=== PATIENT | female | born 1985 | race Caucasian/White ===

== ENCOUNTER 2018-07-31 10:43 | Emergency (ER) | payer MEDICAID, SELFPAY ==
[2018-07-31 10:45] VITALS: BP 109/68; PULSE 73; RESP 15; TEMP 35.9; O2SAT 99; BMI 21.3
--- NOTE | 2018-07-31 11:03 | ED.DCSUM_ITS ---
- ER Visit Summary Date of Service: 07/31/18 Chief Complaint: Vomiting diarrhea History of Present Illness: The patient is a 32 F who states that beginning last she has had diarrhea. On Sunday she developed vomiting. Her last episode of vomiting was Sunday. She states that she has 2 children at home who is also had vomiting. 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 She went to her primary care physician's office yesterday and was diagnosed with a gastroenteritis as well as a otitis media and given amoxicillin. She states that she is drinking large amounts of water. She has not required any Zofran at home. She has not taken any Imodium. She describes the diarrhea as green liquid. She has city water. Prior to the amoxicillin no other antibiotics recently. No recent travel. She states that she is very lightheaded and dizzy particularly with going up stairs and movement. She also notes migraines which she has medication for. Physical Examination: Afebrile vital signs are stable Gen: Well-nourished well-developed Head: Normocephalic atraumatic Eyes: Perrl EOMI ENT: TMs clear no rhinorrhea moist mucous membranes Neck: Supple no lymphadenopathy no JVD nontender CVS: Regular rate rhythm no murmurs normal S1-S2 Respiratory: No distress clear to auscultation bilaterally chest nontender Abdomen: Soft nontender nondistended normal bowel sounds no masses Back: Nontender Extremity: Nontender no edema Skin: Normal color no rash Neuro: alert orientated ?3 CN II-XII intact normal strength sensation reflexes gait cerebellar Psych: Normal affect normal mood Test Results: White count 4.3. Potassium 3.4. Liver lipase negative. Urinalysis and test negative. Emergency Department Course and Treatment: Patient received 2 L of IV fluids. She also received 40 mEq of p.o. potassium. Her orthostatics are negative. She will be discharged home continue to oral hydration return if worsening or concerns. Impression: 1. Gastroenteritis 2. Dehydration This note was generated with [employer] dictation software. It may contain incorrect words, spelling, and punctuation that were not noted in review of the chart prior to signing ED Disposition - Plan for ED Patient: Disposition: Home or Assisted Living Chief Complaint: Nausea/Vomiting/Diarrhea Instructions: ED Gastroenteritis Viral Referrals: Bull Linton DO [Primary Care Provider] - 3-5 Days
[2018-07-31 11:24] LABS: Absolute Lymphocyte Count 1.47 X10^3/ul (0.83-4.51); Absolute Neutrophil Count 2.4 X10^3/uL (2.0-7.7); Basophil# 0.03 X10^3/uL; Basophil% 0.7 % (0-1); Eosinophil# 0.05 X10^3/uL; Eosinophils% 1.2 % (0-5); Hemoglobin 13.9 g/dl (12.0-15.0); Lymphocyte # 1.47 X10^3/ul (4.0); Lymphocyte % 33.9 % (19-41); Mean Corp Hgb Conc 33.1 g/gl (32-36); Mean Corpuscular Hgb 28.2 pg (27.0-32.0); Mean Corpuscular Volume 85.2 fL (81-99); Mean Platelet Vol. 9.1 fl (6.2-12.0); Monocyte# 0.37 X10^3/uL; Monocyte% 8.5 % (0-10); Neutrophil # 2.42 X10^3/uL (2.7-7.7); Neutrophil % 55.7 % (47-70); Platelet Count 270 K/mm3 (150-450); RBC Distribution Width CV 13.3 % (11.6-14.6); RBC Distribution Width SD 41.2 fl (35.1-43.9); Red Blood Count 4.93 M/mm3 (4.2-5.4); White Blood Count 4.3 K/mm3 (4.4-11.0)
[2018-07-31 11:26] LABS: POSITIVE COUNT NO; POSITIVE DIFFERENTIAL NO; POSITIVE MORPHOLOGY NO
[2018-07-31] MEDS: 0.9% Normal Saline 1,000 ML 999 ML IV ×2 (11:30)
[2018-07-31] MEDS: Ondansetron 4 MG/2 ML Vial IV (11:30)
[2018-07-31 11:43] LABS: AST(SGOT) 18 U/L (15-37); Alanine Aminotransfer ALT/SGPT 23 U/L (13-56); Albumin, Serum 3.9 g/dL (3.2-5.0); Alkaline Phosphatase 68 U/L (45-117); Anion Gap 8 (5-15); BUN 6 mg/dL (7-18); BUN/Creat Ratio 7.3 RATIO (10-20); Bilirubin, Direct 0.09 mg/dL (0.00-0.30); Calcium,Total 8.3 mg/dL (8.5-10.1); Chloride 105 mmol/L (98-107); Creatinine, Serum 0.82 mg/dL (0.55-1.02); EST Glomerular Filtration Rate 86 mL/min (>60); Est Glom Filt Rate - Afr Amer 104 mL/min (>60); Globulin 4.2 g/dL (2.2-4.2); Glucose 84 mg/dL (74-106); Lipase 249 U/L (73-393); Potassium 3.4 mmol/L (3.5-5.1); Protein, Total 8.1 g/dL (6.4-8.2); Sodium Level 140 mmol/L (136-145)
[2018-07-31 12:11] LABS: Bacteria 0 SEEN /hpf (None Seen); Mucous, Urine 0 SEEN /hpf (<or=2+); Red Blood Cells-Urine 0 SEEN /hpf (0-5); White Blood Cells 0 SEEN /hpf (0-5)
[2018-07-31 12:15] LABS: Internal QC Validated? YES +Cl - CLEAR BKGD; Pregnancy, Urine Negative Negative
[2018-07-31 12:34] LABS: Color, Urine Yellow (Yellow); Urine Clarity Sl Cldy (Clear)
[2018-07-31 12:35] LABS: Glucose, Dipstick NEGATIVE (Normal); Leukocyte Esterase-Dipstick Negative /ul (Negative); Nitrite-Dipstick Negative (Negative); Protein-Dipstick 15 mg/dl (Negative)
[2018-07-31 12:36] LABS: Ketone-Dipstick Negative (Negative); Occult Blood-Urine Negative /ul (Negative); Urine Bilirubin Dipstick Negative (Negative); Urine Urobilinogen Normal (Normal)
[2018-07-31 12:46] LABS: Squamous Epithelial Cells - UA 0-5 SEEN /hpf (5-10)
[2018-07-31 12:59] VITALS: BP 104/65; BP 95/69; BP 99/69; PULSE 66; PULSE 75; PULSE 81
[2018-07-31 13:00] VITALS: RESP 17; O2SAT 100
[2018-07-31 14:06] VITALS: PULSE 72; RESP 17; O2SAT 99
== END 2018-07-31 14:09 | disposition home or self-care (01) ==
PROVIDERS: Emergency Provider Emergency Medicine; Family Provider Student in an Organized Health Care Education/Training Program; PCP Student in an Organized Health Care Education/Training Program
DX: K52.9 Noninfective gastroenteritis and colitis, unspecified (principal); E86.0 Dehydration; E87.6 Hypokalemia; H66.90 Otitis media, unspecified, unspecified ear; Z79.2 Long term (current) use of antibiotics
CPT/HCPCS: 80048; 80076; 81001; 81025; 83690; 85025; 96361; 96374; 99284; J7030; A4216; J2405

== ENCOUNTER 2018-11-08 20:22 | Emergency (ER) | payer MEDICAID, SELFPAY ==
[2018-11-08 20:23] VITALS: BP 121/69; PULSE 87; RESP 18; TEMP 36.7; O2SAT 100; BMI 23.0
--- NOTE | 2018-11-08 20:32 | CT_ITS ---
STUDY: CT ABDOMEN AND PELVIS WITHOUT CONTRAST REASON FOR EXAM: Female, 33 years old. Left flank pain. RADIATION DOSAGE (If Supplied By Facility): CTDIvol = ( 6.13 ) mGy, DLP = ( 302.98 ) mGycm TECHNIQUE: Transaxial images were obtained from the dome of the diaphragm to the symphysis pubis without oral contrast, and without intravenous contrast. Sagittal and coronal images were reconstructed. Individualized dose optimization techniques were used for this CT. COMPARISON: . FINDINGS: The visualized lung bases are unremarkable. The visualized portions of the heart are within normal limits. Normal liver. There is non-visualization of the gallbladder, which may be secondary to either contraction or a prior cholecystectomy. Normal spleen. Normal pancreas. Normal bilateral adrenal glands. Normal right kidney. Normal left kidney. No definite renal or ureteral stones are seen. There is no hydronephrosis on either side. Evaluation of the GI tract is limited by absence of oral contrast. Cannot exclude stomach wall thickening. No dilated loops of bowel or evidence for obstruction. Cannot exclude segmental thickening of the nieves of the small or large bowel. Cannot exclude enteritis or colitis. Moderate diffuse fecal retention. There has been appendectomy. Normal abdominal aorta. Normal inferior vena cava. Normal retroperitoneum. Normal urinary bladder. There is absence of the uterus consistent with a prior hysterectomy. Normal abdominal wall. Normal osseous structures. CT/Abdomen/Pelvis without Cont IMPRESSION: No definite abnormality found. Electronically Signed: Scott Weber MD at 22:14 EST , Service support ,
--- NOTE | 2018-11-08 20:35 | ED.VISSUMM ---
- ER Visit Summary Date of Service: 11/08/18 Chief Complaint: Flank pain, abdominal pain History of Present Illness: The patient is a 33 F presents to the emergency department left-sided flank pain and low back pain. The patient states her symptoms began today. She states she had a dull ache in her left low back. Since then, its been more migratory to the front of her abdomen. She states when she takes a deep breath, hurts her abdomen. She denies being short of breath. She denies any fevers or chills. She denies dysuria. She had prior hysterectomy and appendectomy. She is noticed no change in her urine. She did take ibuprofen with little improvement. Physical Examination: Vital signs reviewed General: Well-nourished, well-developed Head: Normocephalic, atraumatic Eyes: Pupils equal and reactive, extraocular muscles intact Neck, supple, no lymphadenopathy Heart: Regular rate and rhythm Respiratory: No distress, clear bilaterally Abdomen: Soft, nontender, nondistended, no peritoneal signs Back: Nontender Extremities: Nontender, no edema, no cords Skin: Normal color no rash Neuro: Alert and oriented, no focal or lateralizing deficits Test Results: [] Emergency Department Course and Treatment: The patient's abdomen is soft and nontender. She really has no reproducible CVA tenderness. There is no rash. IV was established. She was given fluids and Toradol. Screening labs are unremarkable. Urine shows no evidence of infection. Patient underwent plain CT. There is significant stool burden, but no other acute process. My suspicion is that this is likely an exacerbation of her chronic constipation. And treat patient with magnesium citrate, Colace, and Bentyl. I do feel that she is safe for outpatient therapy. She was counseled on concerning symptoms and reasons to return. Treatment Plan: [] Disposition: Discharge Impression: 1. Left flank pain 2. Constipation This note was generated with [employer] dictation software. It may contain incorrect words, spelling, and punctuation that were not noted in review of the chart prior to signing ED Disposition - Plan for ED Patient: Instructions: ED Flank Pain Uncertain Cause Prescriptions: Dicyclomine HCl [Bentyl] 20 mg PO TIDAC #20 cap Docusate Sodium [Colace] 100 mg PO DAILY #20 cap Magnesium Citrate [Citrate Of Magnesia] 300 ml PO X1 #1 bottle Referrals: Bull Linton DO [Primary Care Provider] -
[2018-11-08] MEDS: Ketorolac 30 MG/ML Syringe IV (21:37)
[2018-11-08] MEDS: 0.9% Normal Saline 1,000 ML 250 ML IV (21:37)
[2018-11-08] MEDS: Ondansetron 4 MG/2 ML Vial IV (21:37)
[2018-11-08 21:47] LABS: Bacteria 0 SEEN /hpf (None Seen); Mucous, Urine 0 SEEN /hpf (<or=2+); Red Blood Cells-Urine 0 SEEN /hpf (0-5); Squamous Epithelial Cells - UA 0 SEEN /hpf (5-10); White Blood Cells 0 SEEN /hpf (0-5)
[2018-11-08 21:50] LABS: Absolute Lymphocyte Count 3.15 X10^3/ul (0.83-4.51); Absolute Neutrophil Count 6.1 X10^3/uL (2.0-7.7); Basophil# 0.03 X10^3/uL; Basophil% 0.3 % (0-1); Eosinophil# 0.24 X10^3/uL; Eosinophils% 2.3 % (0-5); Hematocrit 38.9 % (37-47); Hemoglobin 12.6 g/dl (12.0-15.0); Lymphocyte # 3.15 X10^3/ul (4.0); Lymphocyte % 30.3 % (19-41); Mean Corp Hgb Conc 32.4 g/gl (32-36); Mean Corpuscular Hgb 27.6 pg (27.0-32.0); Mean Corpuscular Volume 85.3 fL (81-99); Mean Platelet Vol. 9.1 fl (6.2-12.0); Monocyte# 0.83 X10^3/uL; Neutrophil # 6.12 X10^3/uL (2.7-7.7); Neutrophil % 58.8 % (47-70); Platelet Count 344 K/mm3 (150-450); RBC Distribution Width CV 14.1 % (11.6-14.6); RBC Distribution Width SD 44.2 fl (35.1-43.9); Red Blood Count 4.56 M/mm3 (4.2-5.4); White Blood Count 10.4 K/mm3 (4.4-11.0)
[2018-11-08 21:51] LABS: POSITIVE COUNT NO; POSITIVE DIFFERENTIAL NO; POSITIVE MORPHOLOGY NO
[2018-11-08 21:51] LABS: Color, Urine Yellow (Yellow); Glucose, Dipstick Normal (Normal); Ketone-Dipstick Negative (Negative); Leukocyte Esterase-Dipstick Negative /ul (Negative); Nitrite-Dipstick Negative (Negative); Occult Blood-Urine Negative /ul (Negative); Protein-Dipstick Negative (Negative); Specific Gravity, Urine 1.015 (1.002-1.030); Urine Bilirubin Dipstick Negative (Negative); Urine Clarity Clear (Clear); Urine Urobilinogen Normal (Normal); Urine pH 6.5 (5.0 - 8.0)
[2018-11-08 22:02] LABS: Anion Gap 7 (5-15); BUN 10 mg/dL (7-18); BUN/Creat Ratio 14.3 RATIO (10-20); Calcium,Total 8.5 mg/dL (8.5-10.1); Chloride 106 mmol/L (98-107); EST Glomerular Filtration Rate 103 mL/min (>60); Est Glom Filt Rate - Afr Amer 124 mL/min (>60); Estimated Creatinine Clearance 102.86 ml/min; Glucose 77 mg/dL (74-106); Potassium 3.5 mmol/L (3.5-5.1); Sodium Level 140 mmol/L (136-145)
[2018-11-08 22:43] VITALS: BP 105/71; PULSE 73; RESP 16; O2SAT 100
[2018-11-08] MEDS: Magnesium Citrate 300 ML PO (22:44)
== END 2018-11-08 22:46 | disposition home or self-care (01) ==
LOC: ED 20:46
PROVIDERS: Emergency Provider Emergency Medicine; Family Provider Student in an Organized Health Care Education/Training Program; PCP Student in an Organized Health Care Education/Training Program
DX: K59.00 Constipation, unspecified (principal); R10.9 Unspecified abdominal pain
CPT/HCPCS: 74176; 80048; 81001; 85025; 96361; 96374; 96375; 99284; J7030; J2405

== ENCOUNTER → 2019-03-31 | Outpatient (CLI) | payer MEDICAID, SELFPAY ==
--- NOTE | 2019-03-31 17:17 | RAD_ITS ---
STUDY: X-RAY - RIGHT FOOT CLINICAL: Female, 33 years old. Fall one hour ago. Anterior and lateral foot pain. TECHNIQUE: 3 view(s) of the foot. COMPARISON: None. FINDINGS: Normal talus, calcaneus, and tarsal bones. Normal visualized subtalar, talonavicular, calcaneocuboid, tarsal and tarsometatarsal articulations. Normal metatarsi. Normal metatarsophalangeal joint of the great toe. Normal tibial and fibular sesamoid bones. Normal interphalangeal joint of the great toe. Normal phalanges of the great toe. Normal second through fifth metatarsophalangeal joints. Normal interphalangeal joints and phalanges of the lesser toes. The soft tissue structures are unremarkable. RAD/Foot min 3 Views IMPRESSION: Normal x-ray examination of the foot. Electronically Signed: John Shipman MD at 17:37 EDT , Service support ,
--- NOTE | 2019-03-31 17:17 | RAD_ITS ---
STUDY: X-RAY - RIGHT ANKLE REASON FOR EXAM: Female, 33 years old. Fall one hour. Ankle pain. TECHNIQUE: 3 view(s) of the ankle. COMPARISON: None. FINDINGS: Normal visualized distal tibia and fibula. Normal medial and lateral malleoli. Normal tibiotalar articulation and ankle mortise. Normal visualized talus and calcaneus. The visualized subtalar, talonavicular, calcaneocuboid and tarsal articulations are normal. The soft tissue structures are unremarkable. RAD/Ankle min 3 Views IMPRESSION: Normal x-ray examination of the ankle. Electronically Signed: John Shipman MD at 17:38 EDT , Service support ,
== END | disposition home or self-care (01) ==
PROVIDERS: Family Provider Student in an Organized Health Care Education/Training Program; PCP Student in an Organized Health Care Education/Training Program; Referring Provider Physician Assistant; Visit Provider Physician Assistant
DX: S99.911A Unspecified injury of right ankle, initial encounter (principal); S99.921A Unspecified injury of right foot, initial encounter
CPT/HCPCS: 73610; 73630

== ENCOUNTER 2019-06-23 09:05 | Emergency (ER) | payer MEDICAID, SELFPAY ==
[2019-06-23 09:05] VITALS: BMI 23.0
[2019-06-23 09:07] VITALS: BP 131/79; PULSE 88; RESP 18; TEMP 36.1; O2SAT 100; BMI 23.4
--- NOTE | 2019-06-23 09:18 | CT_ITS ---
STUDY: CT BRAIN WITHOUT CONTRAST REASON FOR EXAM: Female, 33 years old. Right facial tingling. Twitching of the right eye. RADIATION DOSAGE (If Supplied By Facility): CTDIvol = ( 44.99 ) mGy, DLP = ( 745.49 ) mGycm TECHNIQUE: Transaxial CT imaging of the brain was performed without administration of intravenous contrast material. Individualized dose optimization techniques were used for this CT. COMPARISON: No relevant priors. FINDINGS: Normal soft tissue structures. Normal calvarium. Normal size ventricles and extra-axial spaces for the patient's age. Normal white matter tracts of the cerebral hemispheres. The left sylvian fissure is more prominent than the right side. This may be a normal variant. Normal basal ganglia and thalami. Normal brainstem. Normal cerebellum. There is no intracranial hemorrhage. There are no findings of an acute ischemic infarction. Normal visualized paranasal sinuses. CT/Brain/Head without Contrast IMPRESSION: Normal unenhanced CT scan of the brain. Electronically Signed: Yash Mroris, at 9:56 EDT , Service support ,
--- NOTE | 2019-06-23 09:26 | ED.DCSUM_ITS ---
- ER Visit Summary Date of Service: 06/23/19 Chief Complaint: Right facial tingling History of Present Illness: The patient is a 33 F Struve migraines and high cholesterol. Patient states her son was actually in the emergency department earlier today being evaluated. She dropped him off at school and around 745 developed right-sided facial tingling. No headache. She denies any arm or leg weakness or numbness. No visual change. No slurred speech. No recent head trauma. She is on no blood thinners. She is never had anything like this before. No family history of clotting disorders. Physical Examination: Well-appearing young female no acute distress. Vital signs are stable afebrile. H EENT exam unremarkable. No facial droop. Pupils round reactive light. Extra motions are intact. Tongue midline. Normal speech. Neck nontender no bruits. Lungs clear to auscultation bilaterally. Heart regular rhythm no murmur. Abdomen soft and nontender. Patient is moving all 4 extremities. There are neurovascular intact. She has 5 out of 5 psychology tech strength bilaterally. Dorsi plantarflexion intact. Neurologically she is awake and alert. No facial droop or weakness. Subjectively her right forehead and right cheek she said is decreased sensation compared to the left but she can feel me touching her face. Both upper and lower extremities are neurovascular intact with normal psychology tech and sensation normal range of motion. Fingertip to nose and [id number] within normal limits bilaterally. He can get up stand and walk to the wall without any difficulty. No ataxia. Negative Romberg. Her NIH score is 0-1 at most and it would be subjective decreased sensation on the right side of her face. Test Results: CAT scan of the brain without contrast as normal by the radiologist and reviewed by me. Emergency Department Course and Treatment: Normal exam except for decreased sensation to the right side of her face. Repeat exam unchanged repeat neurologic exam unchanged. Normal fingertip to nose normal [id number]. Normal ambulation. Normal speech. No facial droop. Subjective right-sided facial decreased sensation but she is able to feel touch on that side. Treatment Plan: Follow-up with primary care physician. Obviously return if worse or develops any trouble with moving her arms or legs, visual change, trouble with her speech or difficulty walking. Clinically I do not feel at this time she needs any further work-up. Disposition: Discharge Impression: Right-sided facial tingling of uncertain etiology This note was generated with [employer] dictation software. It may contain incorrect words, spelling, and punctuation that were not noted in review of the chart prior to signing ED Disposition - Plan for ED Patient: Referrals: Bull Linton DO [Primary Care Provider] -
--- NOTE | 2019-06-23 10:06 | ED.DEP ---
ED Disposition - Plan for ED Patient: Disposition: Home or Assisted Living Instructions: Paraesthesias Referrals: Bull Linton DO [Primary Care Provider] - 3-5 Days if not improving Additional Instructions: Return if worse such as visual change, trouble using her arms or legs, weakness or speech change. This should progressively improve and go away if not follow-up with your doctor for further evaluation.
--- NOTE | 2019-06-23 10:14 | ED.RN ---
DISCHARGE INSTRUCTIONS GIVEN TO AND REVIEWED WITH PATIENT, PATIENT DENIES QUESTIONS OR CONCERNS AND VOICES UNDERSTANDING OF DISCHARGE INSTRUCTIONS. PT AMBULATES OUT OF ROOM WITHOUT DIFFICULTY.
== END 2019-06-23 10:15 | disposition home or self-care (01) ==
PROVIDERS: Emergency Provider Emergency Medicine; Family Provider Student in an Organized Health Care Education/Training Program; PCP Student in an Organized Health Care Education/Training Program
DX: R20.2 Paresthesia of skin (principal); G43.909 Migraine, unspecified, not intractable, without status migrainosus; Z79.899 Other long term (current) drug therapy
CPT/HCPCS: 70450; 99282

== ENCOUNTER → 2020-06-14 | Outpatient (CLI) | payer MEDICAID, SELFPAY | END | disposition home or self-care (01) | LOC: MTDU 17:18 | PROVIDERS: PCP Student in an Organized Health Care Education/Training Program; Referring Provider Physician Assistant; Visit Provider Physician Assistant | DX: Z20.828 Contact with and (suspected) exposure to other viral communicable diseases (principal) | CPT/HCPCS: 87635; C9803; U0003 ==

== ENCOUNTER 2021-03-12 23:50 | Observation (INO) | payer MEDICAID, SELFPAY ==
[2021-03-12 23:51] VITALS: BP 129/77; PULSE 85; RESP 18; TEMP 36.3; O2SAT 100; BMI 22.4
[2021-03-13] VITALS (14 sets, daily range): BP systolic 103–118; BP diastolic 52–81; PULSE 68–88; RESP 14–22; TEMP 36.6–37.1; O2SAT 94–100; BMI 22.4
--- NOTE | 2021-03-13 00:37 | EKG12_ITS ---
Test Reason : STROKE TEAM Blood Pressure : / mmHG Vent. Rate : 076 BPM Atrial Rate : 076 BPM P-R Int : 158 ms QRS Dur : 080 ms QT Int : 410 ms P-R-T Axes : 057 045 045 degrees QTc Int : 461 ms Normal sinus rhythm Normal ECG Confirmed by ROXANA REED, TEDDY ([id number]), video effects editor ENRIQUE TIJERINA ([id number]) on 03/14/2021 10:47:46 A M Referred By: MAUDE Confirmed By:FLOWER SCHMIDT MD
--- NOTE | 2021-03-13 00:37 | RAD_ITS ---
STUDY: X-RAY CHEST REASON FOR EXAM: Female, 35 years old. Neuro deficit, acute, stroke suspected TECHNIQUE: Single AP portable view of the chest. COMPARISON: None. FINDINGS: The lungs are clear and expanded. There is no demonstrated pleural abnormality. Normal size heart. Normal mediastinum and sangeeta. Normal visualized pulmonary arteries. Normal visualized aortic arch and descending thoracic aorta. Normal visualized thoracic spine. Normal visualized ribs, clavicles, and shoulders. There is no demonstrated abnormality of the visualized soft tissue structures of the upper abdomen. RAD/Chest 1 View IMPRESSION: Normal x-ray examination of the chest. Electronically Signed: Page Mckeon MD at 1:23 EDT , Service support ,
--- NOTE | 2021-03-13 00:37 | CT_ITS ---
We are attempting to reach an attending provider to discuss findings. An addendum with communication details will be sent when the communication is complete. HISTORY: Neuro deficit, acute, stroke suspected EXAMINATION: CT Head Stroke Protocol W/O Contrast Injection TECHNIQUE: Multiple axial images were obtained of the head without intravenous contrast. A radiation dose optimization technique was used for this scan. IV Contrast dosage and agent: None. COMPARISON: Head CT from 06/23/19 FINDINGS: BRAIN PARENCHYMA: No intra- or extra-axial hemorrhage. No evidence of acute infarct. No intracranial mass or mass effect. There is preservation of the beasley/white matter interface. Posterior fossa structures are unremarkable. CSF SPACES: Appropriate for age. No hydrocephalus. Basal cisterns are patent. CALVARIUM, SKULL BASE, PARANASAL SINUSES AND MASTOID AIR CELLS: Intact calvarium. No acute disease within imaged paranasal sinuses. Mastoid air cellls are well pneumatized. ORBITS: Unremarkable as visualized. ASPECTS Score for Acute Strokes: 10 CT/STROKE Brain/Head without Cont IMPRESSION: Negative Brain CT without contrast. Individualized dose optimization techniques were used for this CT. at 0059 Reported and signed by: Ricky Blue MD Electronically Signed: Ricky Blue MD at 0:58 EDT Tel , Service support ,
--- NOTE | 2021-03-13 00:37 | CT_ITS ---
We are attempting to reach an attending provider to discuss findings. An addendum with communication details will be sent when the communication is complete. STUDY: CTA HEAD AND NECK WITH CONTRAST REASON FOR EXAM: Female, 35 years old. Neuro deficit, acute, stroke suspected RADIATION DOSAGE (If Supplied By Facility): CTDIvol = ( 16.32 ) mGy, DLP = ( 575.76 ) mGycm TECHNIQUE: CT angiography was performed with a multi-detector CT scanner. Data acquisition was obtained from the skull base through the vertex following intravenous administration of IV 100mL [id number]-[id number]. MIP images were reconstructed from the axial data set. Post-processing of the angiographic images was performed, with multiplanar reformation and 3D reconstruction. Individualized dose optimization techniques were used for this CT. COMPARISON: No relevant priors. FINDINGS: Normal bilateral petrous carotid arteries. Normal right cavernous carotid artery with a normal supraclinoid bifurcation. Normal left cavernous carotid artery with a normal supraclinoid bifurcation. Normal right A1 segments of the anterior cerebral artery. Normal left A1 segments of the anterior cerebral artery. Normal intact anterior communicating artery (ACOM). Normal bilateral A2 segments of the anterior cerebral arteries. Normal right M1 and M2 segments of the middle cerebral arteries, with a normal M1 bifurcation. Normal left M1 and M2 segments of the middle cerebral arteries, with a normal M1 bifurcation. Normal right posterior communicating artery (PCOM). Normal left posterior communicating artery (PCOM). Normal bilateral vertebral arteries. Normal basilar artery with a normal basilar bifurcation. The visualized bilateral superior cerebellar (SCA) arteries are normal. Normal bilateral P1, P2 and visualized P3 segments of the posterior cerebral arteries. There is no demonstrated aneurysm of the [place]. There is no demonstrated abnormality of the visualized brain. AORTIC ARCH: Normal visualized aortic arch. Normal origins of the brachiocephalic, left common carotid, and left subclavian arteries. RIGHT CAROTID ARTERIES: Normal right common carotid artery (CCA). Normal right common carotid bulb. Normal origin of the right internal carotid (ICA) artery without a hemodynamically significant stenosis. Normal visualized cervical portion of the right internal carotid artery. Normal origin of the right external carotid artery (ECA). LEFT CAROTID ARTERIES: Normal left common carotid artery (CCA). Normal left common carotid bulb. Normal origin of the left internal carotid (ICA) artery without a hemodynamically significant stenosis. Normal visualized cervical portion of the left internal carotid artery. Normal origin of the left external carotid artery (ECA). VERTEBRAL ARTERIES: Normal bilateral vertebral arteries. CT/STROKE CTA Head AND Neck W/Con IMPRESSION: Normal CTA Head and neck with contrast. Electronically Signed: Page Mckeon MD at 1:22 EDT , Service support ,
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
[2021-03-13 00:53] LABS: Absolute Lymphocyte Count 2.76 X10^3/uL (0.83-4.51); Absolute Neutrophil Count 5.6 X10^3/uL (2.0-7.7); Basophil# 0.05 X10^3/uL; Basophil% 0.5 % (0-1); Eosinophils% 2.1 % (0-5); Hematocrit 37.5 % (37-47); Hemoglobin 12.2 g/dL (12.0-15.0); Lymphocyte # 2.76 X10^3/ul (0.83-4.51); Lymphocyte % 29.5 % (19-41); Mean Corp Hgb Conc 32.5 g/dL (32-36); Mean Corpuscular Hgb 28.7 pg (27.0-32.0); Mean Corpuscular Volume 88.2 fL (81-99); Mean Platelet Vol. 9.2 fl (6.2-12.0); Monocyte# 0.78 X10^3/uL; Monocyte% 8.3 % (0-10); NRBC Flagged by Analyzer 0 % (0-5); Neutrophil # 5.55 X10^3/uL (2.7-7.7); Neutrophil % 59.3 % (47-70); Platelet Count 314 K/mm3 (150-450); RBC Distribution Width CV 12.9 % (11.6-14.6); RBC Distribution Width SD 41.7 fl (35.1-43.9); Red Blood Count 4.25 M/mm3 (4.2-5.4); White Blood Count 9.4 K/mm3 (4.4-11.0)
--- NOTE | 2021-03-13 01:10 | ED.RN ---
Dr Velazquez aware neuro instruction for admit for obs and mri
[2021-03-13 01:13] LABS: Anion Gap 6 (5-15); BUN 11 mg/dL (7-18); BUN/Creat Ratio 14.3 RATIO (10-20); Calcium,Total 8.6 mg/dL (8.5-10.1); Chloride 106 mmol/L (98-107); Creatinine, Serum 0.77 mg/dL (0.55-1.02); EST Glomerular Filtration Rate 91 mL/min (>60); Est Glom Filt Rate - Afr Amer 110 mL/min (>60); Estimated Creatinine Clearance 95.46 ml/min; Glucose 74 mg/dL (74-106); Potassium 3.6 mmol/L (3.5-5.1); Sodium Level 140 mmol/L (136-145)
[2021-03-13 01:16] LABS: Bedside Glucose 89 mg/dL (70-110)
--- NOTE | 2021-03-13 01:30 | NURSING ---
Urine sent to lab, in case needed by floor.
--- NOTE | 2021-03-13 02:03 | HP.PCM.HOS_ITS ---
HPI - General General Date of Admission: 03/13/21 HPI Narrative EDUARDO DOUGLAS, is a 35 F with a significant history of migraine who presents to the emergency department with numbness of her left forearm. Also she was cold and clammy and had hot flashes from her chest up. Reportedly her heart rate was elevated and she had pressure in between her eyebrows. Further she had left feet tingling and right feet numbness. Also, she had decreased grasp of her left hand. Of note patient has a 61 allergy patches placed on the back and she has to take these patches off at her child care education coordinator office on 03/14/2021 at 1:45 PM at [place], [place]. [facility] Medical History Anxiety Depression Hyperlipidemia Migraine Non-smoker Right ankle sprain Right foot sprain Home Medications sumatriptan succinate 50 mg PO PRN PRN 06/23/19 [History Last Taken 03/09/21] duloxetine 30 mg PO DAILY 03/13/21 [History Last Taken 03/09/21] metoprolol tartrate 25 mg PO DAILY 03/13/21 [History Last Taken 03/09/21] Allergy/AdvReac Type Severity Reaction Status Date / Time orange Allergy Vomiting Verified 03/13/21 03:06 Family History Mother Diabetes Other Cancer Heart disease Surgical History H/O: hysterectomy History of appendectomy Social History household members: spouse and children housing: house number of children: 3 current occupational status: employed 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 Smoking Status: Never smoker Vital Signs Vital Signs Vital Signs: 03/12/21 23:51 03/13/21 00:04 03/13/21 00:37 Temperature 97.3 F L 97.8 F Temperature Source Temporal Temporal Pulse Rate 85 85 Respiratory Rate 18 19 H Respiratory Pattern Normal Blood Pressure 129/77 H 116/74 Blood Pressure Mean 94 88 Pulse Ox 100 100 Oxygen Delivery Method Room Air Room Air 03/13/21 01:07 03/13/21 01:11 03/13/21 01:25 Temperature 98.7 F 97.8 F Temperature Source Temporal Oral Pulse Rate 82 80 Respiratory Rate 19 H 20 H Respiratory Pattern Blood Pressure 117/78 118/81 H Blood Pressure Mean 91 93 Pulse Ox 100 100 100 Oxygen Delivery Method Room Air Room Air Room Air Weight Weight: 63 kg Body Mass Index (BMI) 22.4 Physical Exam Narrative Physical exam: General: Well-nourished, well-developed, no acute distress Head: Normocephalic, atraumatic, no tenderness Eyes: PERRLA, EOMI ENT, no trauma, moist mucous membranes, no rhinorrhea Neck: Nontender, full range of motion, no spinal tenderness, deformities, step- off CVS: Regular rate and rhythm Respiratory no acute distress, clear to auscultation bilaterally, chest wall nontender, no wheezing Abdomen: Soft, nontender, nondistended, normal bowel sounds, no masses : Deferred Back: Nontender, no CVA tenderness, no midline spinal tenderness, deformities, step-offs Extremities: Nontender full range of motion, no trauma Skin: Normal color, no trauma, abrasions Neuro: Alert, oriented, cranial nerves II through XII grossly intact. No dysmetria on [id number] test and [id number] test. Hyperreflexia of left knee reflex compared to right knee reflex. No hyperreflexia of bilateral elbow reflex. Strength in left upper extremity 4 out of 5. Decreased left handgrip. Strength in all other extremities 5 out of 5. Results Lab / Micro Data Result Diagrams: 03/13/21 00:48 03/13/21 00:48 Labs: Laboratory Results - last 24 hr 03/13/21 03/13/21 03/13/21 00:48 00:48 00:48 WBC 9.4 RBC 4.25 Hgb 12.2 Hct 37.5 MCV 88.2 MCH 28.7 MCHC 32.5 RDW Std Deviation 41.7 RDW Coeff of Joseph 12.9 Plt Count 314 MPV 9.2 Immature Gran % (Auto) 0.300 Neut % (Auto) 59.3 Lymph % (Auto) 29.5 [place] % (Auto) 8.3 Eos % (Auto) 2.1 Baso % (Auto) 0.5 Absolute Neuts (auto) 5.6 Absolute Lymphs (auto) 2.76 Nucleated RBC % 0 PT 13.0 INR 1.0 APTT 30.0 Sodium 140 Potassium 3.6 Chloride 106 Carbon Dioxide 28.0 Anion Gap 6 BUN 11 Creatinine 0.77 Estim Creat Clear Calc 95.46 Est GFR (MDRD) Af Amer 110 Est GFR (MDRD) Non-Af 91 BUN/Creatinine Ratio 14.3 Glucose 74 Calcium 8.6 Troponin I < 0.015 POC Glucose 03/13/21 00:57 WBC RBC Hgb Hct MCV MCH MCHC RDW Std Deviation RDW Coeff of Joseph Plt Count MPV Immature Gran % (Auto) Neut % (Auto) Lymph % (Auto) [place] % (Auto) Eos % (Auto) Baso % (Auto) Absolute Neuts (auto) Absolute Lymphs (auto) Nucleated RBC % PT INR APTT Sodium Potassium Chloride Carbon Dioxide Anion Gap BUN Creatinine Estim Creat Clear Calc Est GFR (MDRD) Af Amer Est GFR (MDRD) Non-Af BUN/Creatinine Ratio Glucose Calcium Troponin I POC Glucose [address] 03/13/21 00:37 IMPRESSION: Negative Brain CT without contrast. Individualized dose optimization techniques were used for this CT. at 0059 Reported and signed by: Ricky Blue MD Electronically Signed: Rciky Blue MD at 0:58 EDT Tel , Service support , ADDENDUM: 03/13/21 0107 IMPRESSION: Negative Brain CT without contrast. Individualized dose optimization techniques were used for this CT. at 0059 Reported and signed by: Ricky Blue MD N.B. : The above Results were Read Back by Ricky Blue MD to Damion Velazquez DO, and understanding confirmed on 03/13/2021 01:00:01 (ET). Electronically Signed: Ricky Blue MD at 0:58 EDT Tel , Service support , Chest X-Ray 03/13/21 00:37 IMPRESSION: Normal x-ray examination of the chest. Electronically Signed: Page Mckeon MD at 1:23 EDT , Service support , Head/Neck CTA 03/13/21 00:37 IMPRESSION: Normal CTA Head and neck with contrast. Electronically Signed: Page Mckeon MD at 1:22 EDT , Service support , ADDENDUM: 03/13/21 0138 IMPRESSION: Normal CTA Head and neck with contrast. N.B. : The above Results were Read Back by Page Mckeon MD to Damion eVlazquez DO, and understanding confirmed on 03/13/2021 01:31:33 (ET). Electronically Signed: Page Mckeon MD at 1:22 EDT , Service support , Assessment & Plan Assessment/Plan (1) Stroke-like symptoms: PLAN: Per telemetry neurologist defer diagnosis include complex migraine, agree. With telemetry neurologist upon discharge consider outpatient referral to [facility] headache clinic. Radiologist impression of CT of the head: Normal brain CT without contrast. Actual CT image of head was independently interpreted. I agree radiologist interpretation. Head and neck CTA was unremarkable. Serial NINDS NIH Scale ordered, Per telemetry neurologist recommendation MRI brain and echocardiogram ordered. Also physical therapy, occupational therapy and speech therapy to evaluate and treat. Patient has a 61 allergic patches at her back which supposed to be removed on 03/14/2021 at child care education coordinator office so patient's is declining any medication Per recommendation from her child care education coordinator. As such aspirin and high intensity statin could not be ordered. N.p.o. until bedside swallow eval. Review of emergency department labs showed normal CBC Allow permissive hypertension. Of note patient has an appointment on 03/14/21 at 1:45 PM at [facility] for removal of allergy patches. Initially patient and her boyfriend wanted to leave because they could not wait till 03/14/2021 for MRI. Upon further discussion patient will stay for test. Recommend having MRI done early Sunday03/14/21 and an early discharge on Sunday if possible. Charges/Coding Visit Charges OBSV E&M: 99809 Initial observation care L2
--- NOTE | 2021-03-13 02:40 | NURSING ---
PAtient and do not want to do admit for MRI check and want to go home so Dr Velazquez back to room with patient
--- NOTE | 2021-03-13 02:58 | MRI_ITS ---
EXAM: MR HEAD WITHOUT INTRAVENOUS CONTRAST : 1985 CLINICAL INDICATION: cva, left arm numbness TECHNIQUE: Multiplanar and multisequence MR images of the brain were obtained without intravenous contrast. This report was created using [employer] report generation technology. COMPARISON: CT brain March 13, 2021 FINDINGS: BRAIN AND EXTRA-AXIAL SPACES: Unremarkable. No intra- or extra-axial hemorrhage. No evidence of acute infarct. No intracranial mass or mass effect. There is preservation of the beasley/white matter interface. Posterior fossa structures are unremarkable. Ventricles are appropriate for age. No hydrocephalus. Basal cisterns are patent. SELLA: Unremarkable. Normal sella turcica, pituitary gland, infundibular stalk, optic chiasm and hypothalamus. AUDITORY SYSTEM: Unremarkable. The internal auditory canals are patent. BONES/JOINTS: Unremarkable. No discrete lytic or blastic abnormalities. SINUSES: Unremarkable as visualized. Clear. MASTOID AIR CELLS: Unremarkable as visualized. Clear. ORBITS: Unremarkable as visualized. Both globes, extraocular muscles, optic nerves and retrobulbar fat appear unremarkable. VASCULATURE: Unremarkable as visualized. Normal flow voids in the major intracranial circulation. MRI/Brain without Contrast IMPRESSION: Normal MRI brain without contrast. at 1213 Reported and signed by: Glen Osullivan MD Electronically Signed: Glen Osullivan MD at 12:12 EDT Tel , Service support ,
[2021-03-13 05:53] LABS: Absolute Lymphocyte Count 2.62 X10^3/uL (0.83-4.51); Absolute Neutrophil Count 4.5 X10^3/uL (2.0-7.7); Basophil# 0.04 X10^3/uL; Basophil% 0.5 % (0-1); Eosinophil# 0.18 X10^3/uL; Eosinophils% 2.2 % (0-5); Hematocrit 37.6 % (37-47); Hemoglobin 12.4 g/dL (12.0-15.0); Lymphocyte # 2.62 X10^3/ul (0.83-4.51); Lymphocyte % 32.5 % (19-41); Mean Corpuscular Hgb 28.5 pg (27.0-32.0); Mean Corpuscular Volume 86.4 fL (81-99); Mean Platelet Vol. 9.2 fl (6.2-12.0); Monocyte# 0.65 X10^3/uL; Monocyte% 8.1 % (0-10); NRBC Flagged by Analyzer 0 % (0-5); Neutrophil # 4.54 X10^3/uL (2.7-7.7); Neutrophil % 56.5 % (47-70); Platelet Count 301 K/mm3 (150-450); RBC Distribution Width CV 12.9 % (11.6-14.6); RBC Distribution Width SD 40.8 fl (35.1-43.9); Red Blood Count 4.35 M/mm3 (4.2-5.4); White Blood Count 8.1 K/mm3 (4.4-11.0)
[2021-03-13 06:10] LABS: ALB/GLOB Ratio 0.9 RATIO (0.9-2.4); AST(SGOT) 8 U/L (15-37); Alanine Aminotransfer ALT/SGPT 12 U/L (13-56); Albumin, Serum 3.3 g/dL (3.2-5.0); Alkaline Phosphatase 62 U/L (45-117); Anion Gap 6 (5-15); BUN 11 mg/dL (7-18); BUN/Creat Ratio 16.4 RATIO (10-20); Calcium,Total 8.1 mg/dL (8.5-10.1); Chloride 109 mmol/L (98-107); Cholesterol 250 mg/dL (200); Creatinine, Serum 0.67 mg/dL (0.55-1.02); EST Glomerular Filtration Rate 106 mL/min (>60); Est Glom Filt Rate - Afr Amer 129 mL/min (>60); Estimated Creatinine Clearance 109.71 ml/min; Globulin 3.5 g/dL (2.2-4.2); Glucose 95 mg/dL (74-106); High Density Lipoprotein 41 mg/dL; Potassium 3.8 mmol/L (3.5-5.1); Protein, Total 6.8 g/dL (6.4-8.2); Sodium Level 139 mmol/L (136-145); Triglycerides 73 mg/dL; Very Low Density Lipoprotein 15 mg/dL (5-40)
[2021-03-13 07:39] LABS: Hemoglobin A1c 5.1 % (3.8-5.6)
--- NOTE | 2021-03-13 11:39 | PCM.DC ---
Discharge Instructions Diet Discharge Diet: No restrictions Activity Discharge Activity: Return to Normal Activity Dressing / Incision Call your doctor if you observe: Numbness or Tingling, Shortness of breath and Dizziness Follow Up Care Test Results: Test results from this visit will be discussed in further detail at your follow-up appointment, if applicable. Discharge Plan Admission Admit Date/Time: 03/13/21 02:01 Primary Reason for Your Visit: Complex migraine Attending Provider: Luis Antonio Ceballos Primary Care Provider: Bull Linton Instructions Additional Instructions / Restrictions: Patient Problems: Altered Health Status related to Hospitalization Patient Goals: *Optimal Level of Health *Keep Appointments *Medication Compliance *Remain Safe Discharge Orders/Prescriptions Prescriptions: Continued sumatriptan succinate 50 MG tablet 50 mg PO PRN PRN (Reason: Migraines) RF: 0 metoprolol tartrate 25 mg tablet 25 mg PO DAILY RF: 0 duloxetine 30 mg capsule,delayed release(DR/EC) 30 mg PO DAILY RF: 0 Referrals / Follow Up: Bull Linton [Primary Care Provider] - In 1 Week (Please call to schedule follow up appointment) Terry Martinez MD [STAFF PHYSICIAN] - Within 2 Weeks Disposition Disposition (needs filled in before D/C Order can be placed): Home, self care
--- NOTE | 2021-03-13 12:43 | PCM.DC.SUM ---
Documented by User: Ne Rosenthal NP, KEATON-C 03/13/21 12:49 Providers Date of Admission: 03/13/21 Date of Discharge: 03/13/21 Primary Care Physician: Bull Linton Reason For Visit: STROKELIKE SYMPTOMS Diagnosis Discharge Diagnosis (1) Stroke-like symptoms: Status: Acute Code(s): R29.90 - Unspecified symptoms and signs involving the nervous system Medications at Discharge Home Medications duloxetine 30 mg PO DAILY 03/13/21 metoprolol tartrate 25 mg PO DAILY 03/13/21 Hospital Course Operations None Procedures None Summary of Care Provided Minutes Spent on Discharge: 35 Hospital Course: Patient is a 35-year-old female admitted 03/13/2021 due to left forearm numbness and tingling. 1. Complex migraine, CVA/TIA ruled out- History of frequent chronic migraines. Head and neck CTA normal. MRI of brain normal. Echocardiogram deferred given normal stroke work-up. Tele neurology consulted in ER, suspects complicated migraine. Symptoms have resolved. Referred to neurology as outpatient for further migraine evaluation and management. Hold sumatriptan per neurology recommendations. Patient seen and examined prior to discharge. Physical assessment as noted below. Patient is stable for discharge with follow up recommendations as noted above. This patient was seen by YAMILET Avila under the supervision of Dr. Ceballos. Physical Exam Const alert, oriented x3 and no apparent distress Orientation / Consciousness: awake, oriented to person, oriented to place and oriented to time HEENT normocephalic and moist oral mucous membranes Eyes PERRL, EOMs intact bilaterally and conjunctivae normal Neck no lymphadenopathy Resp normal respiratory effort and clear to auscultation bilaterally Cardio regular rate, regular rhythm and no murmurs Peripheral Pulses: pulses 2+ throughout GI normal to inspection, nondistended, normoactive bowel sounds, non-tender and non-distended Extremity normal to inspection Skin no rashes or lesions noted Lesions: no lesions Rashes: no rashes Trauma: no lacerations or abrasions Neuro CN's II-XII intact bilaterally, no focal motor deficits, no sensory deficits noted and deep tendon reflexes 2+ bilaterally Psych mental status grossly normal and affect normal Weight / BMI Weight Weight: 138 lb 10.732 oz Body Mass Index (BMI) 22.4 ABG / Lab / Microbiology Data Result Diagrams: 03/13/21 05:39 03/13/21 05:39 Laboratory: Laboratory Results - last 24 hr 03/13/21 03/13/21 03/13/21 00:48 00:48 00:48 WBC 9.4 RBC 4.25 Hgb 12.2 Hct 37.5 MCV 88.2 MCH 28.7 MCHC 32.5 RDW Std Deviation 41.7 RDW Coeff of Joseph 12.9 Plt Count 314 MPV 9.2 Immature Gran % (Auto) 0.300 Neut % (Auto) 59.3 Lymph % (Auto) 29.5 Traverse % (Auto) 8.3 Eos % (Auto) 2.1 Baso % (Auto) 0.5 Absolute Neuts (auto) 5.6 Absolute Lymphs (auto) 2.76 Nucleated RBC % 0 PT 13.0 INR 1.0 APTT 30.0 Sodium 140 Potassium 3.6 Chloride 106 Carbon Dioxide 28.0 Anion Gap 6 BUN 11 Creatinine 0.77 Estim Creat Clear Calc 95.46 Est GFR (MDRD) Af Amer 110 Est GFR (MDRD) Non-Af 91 BUN/Creatinine Ratio 14.3 Glucose 74 Hemoglobin A1c Calcium 8.6 Total Bilirubin AST ALT Alkaline Phosphatase Troponin I < 0.015 Total Protein Albumin Globulin Albumin/Globulin Ratio Triglycerides Cholesterol LDL Cholesterol VLDL Cholesterol HDL Cholesterol POC Glucose 03/13/21 03/13/21 03/13/21 00:57 05:39 05:39 WBC 8.1 RBC 4.35 Hgb 12.4 Hct 37.6 MCV 86.4 MCH 28.5 MCHC 33.0 RDW Std Deviation 40.8 RDW Coeff of Joseph 12.9 Plt Count 301 MPV 9.2 Immature Gran % (Auto) 0.200 Neut % (Auto) 56.5 Lymph % (Auto) 32.5 Traverse % (Auto) 8.1 Eos % (Auto) 2.2 Baso % (Auto) 0.5 Absolute Neuts (auto) 4.5 Absolute Lymphs (auto) 2.62 Nucleated RBC % 0 PT INR APTT Sodium 139 Potassium 3.8 Chloride 109 H Carbon Dioxide 24.0 Anion Gap 6 BUN 11 Creatinine 0.67 Estim Creat Clear Calc 109.71 Est GFR (MDRD) Af Amer 129 Est GFR (MDRD) Non-Af 106 BUN/Creatinine Ratio 16.4 Glucose 95 Hemoglobin A1c Calcium 8.1 L Total Bilirubin 0.30 AST 8 L ALT 12 L Alkaline Phosphatase 62 Troponin I Total Protein 6.8 Albumin 3.3 Globulin 3.5 Albumin/Globulin Ratio 0.9 Triglycerides 73 Cholesterol 250 H LDL Cholesterol 194 H VLDL Cholesterol 15 HDL Cholesterol 41 POC Glucose 89 03/13/21 05:39 WBC RBC Hgb Hct MCV MCH MCHC RDW Std Deviation RDW Coeff of Joseph Plt Count MPV Immature Gran % (Auto) Neut % (Auto) Lymph % (Auto) Traverse % (Auto) Eos % (Auto) Baso % (Auto) Absolute Neuts (auto) Absolute Lymphs (auto) Nucleated RBC % PT INR APTT Sodium Potassium Chloride Carbon Dioxide Anion Gap BUN Creatinine Estim Creat Clear Calc Est GFR (MDRD) Af Amer Est GFR (MDRD) Non-Af BUN/Creatinine Ratio Glucose Hemoglobin A1c 5.1 Calcium Total Bilirubin AST ALT Alkaline Phosphatase Troponin I Total Protein Albumin Globulin Albumin/Globulin Ratio Triglycerides Cholesterol LDL Cholesterol VLDL Cholesterol HDL Cholesterol POC Glucose Radiography Diagnostic Testing: Radiology Impression Brain CT 03/13/21 00:37 IMPRESSION: Negative Brain CT without contrast. Individualized dose optimization techniques were used for this CT. at 0059 Reported and signed by: Ricky Blue MD Electronically Signed: Ricky Blue MD at 0:58 EDT Tel , Service support , ADDENDUM: 03/13/21 0107 IMPRESSION: Negative Brain CT without contrast. Individualized dose optimization techniques were used for this CT. at 0059 Reported and signed by: Ricky Blue MD N.B. : The above Results were Read Back by Ricky Blue MD to Damion Velazquez DO, and understanding confirmed on 03/13/2021 01:00:01 (ET). Electronically Signed: Ricky Blue MD at 0:58 EDT Tel , Service support , Chest X-Ray 03/13/21 00:37 IMPRESSION: Normal x-ray examination of the chest. Electronically Signed: Page Mckeon MD at 1:23 EDT , Service support , Head/Neck CTA 03/13/21 00:37 IMPRESSION: Normal CTA Head and neck with contrast. Electronically Signed: Page Mckeon MD at 1:22 EDT , Service support , ADDENDUM: 03/13/21 0138 IMPRESSION: Normal CTA Head and neck with contrast. N.B. : The above Results were Read Back by Page Mckeon MD to Damion Velazquez DO, and understanding confirmed on 03/13/2021 01:31:33 (ET). Electronically Signed: Page Mckeon MD at 1:22 EDT , Service support , Brain MRI 03/13/21 02:58 IMPRESSION: Normal MRI brain without contrast. at 1213 Reported and signed by: Glen Osullivan MD Electronically Signed: Glen Osullivan MD at 12:12 EDT Tel , Service support , D/C Instructions Discharge Diet: No restrictions Call your doctor if you observe: Numbness or Tingling, Shortness of breath and Dizziness Meaningful Use Info Meaningful Use Diagnoses (Choose all that apply): None applicable Discharge Plan Admission Admit Date/Time: 03/13/21 02:01 Primary Reason for Your Visit: Complex migraine Attending Provider: Luis Antonio Ceballos Primary Care Provider: Bull Linton Instructions Additional Instructions / Restrictions: Patient Problems: Altered Health Status related to Hospitalization Patient Goals: *Optimal Level of Health *Keep Appointments *Medication Compliance *Remain Safe Discharge Orders/Prescriptions Prescriptions: Continued metoprolol tartrate 25 mg tablet 25 mg PO DAILY RF: 0 duloxetine 30 mg capsule,delayed release(DR/EC) 30 mg PO DAILY RF: 0 Discontinued sumatriptan succinate 50 MG tablet 50 mg PO PRN PRN (Reason: Migraines) RF: 0 Referrals / Follow Up: Terry Martinez MD [STAFF PHYSICIAN] - Within 2 Weeks Bull Linton [Primary Care Provider] - In 1 Week (Please call to schedule follow up appointment) Disposition Disposition (needs filled in before D/C Order can be placed): Home, self care Documented by User: Dr. Luis Antonio Ceballos MD 03/13/21 15:07 Providers Date of Admission: 03/13/21 Reason For Visit: STROKELIKE SYMPTOMS Medications at Discharge Home Medications duloxetine 30 mg PO DAILY 03/13/21 metoprolol tartrate 25 mg PO DAILY 03/13/21 Hospital Course Summary of Care Provided Hospital Course: This patient was seen in conjunction with Ne PUGH. I have independently interviewed and examined the patient and reviewed pertinent history, examination findings, laboratory and plan of management. I have reviewed the note and agree with the documented findings with the few additional points. In brief, patient is admitted for left forearm numbness below elbow and feet numbness. She has history of complex migraine for long time. She was admitted in PCU for stroke work-up. CT angiogram head and neck negative. MRI brain normal. Stroke work-up was negative therefore does not require echo on urgent basis but defer to PCP as an outpatient. I think her symptoms are more due to migraine. NIH stroke scale 0. Patient is discharged home. Discharge medication reconciliation done. Discharge follow-up instructions completed. Discharge process discussed with the patient and all questions were answered to patient's satisfaction. I have discussed my assessment with Ne PUGH and orders have been reviewed. Clinical Impression(s) from Imaging Studies Brain CT 03/13/21 00:37 IMPRESSION: Negative Brain CT without contrast. Individualized dose optimization techniques were used for this CT. at 0059 Reported and signed by: Ricky Blue MD Electronically Signed: Ricky Blue MD at 0:58 EDT Tel , Service support , ADDENDUM: 03/13/21 0107 IMPRESSION: Negative Brain CT without contrast. Individualized dose optimization techniques were used for this CT. at 0059 Reported and signed by: Ricky Blue MD N.B. : The above Results were Read Back by Ricky Blue MD to Damion Velazquez DO, and understanding confirmed on 03/13/2021 01:00:01 (ET). Electronically Signed: Ricky Blue MD at 0:58 EDT Tel , Service support , Chest X-Ray 03/13/21 00:37 IMPRESSION: Normal x-ray examination of the chest. Head/Neck CTA 03/13/21 00:37 IMPRESSION: Normal CTA Head and neck with contrast. Brain MRI 03/13/21 02:58 IMPRESSION: Normal MRI brain without contrast. Physical Exam Narrative Physical exam General: Alert, Oriented x3, Cooperative HEENT: Atraumatic, PERRLA, EOMI, Normocephalic Oral: No Gingival or Mucosal Lesions/ Ulcerations Neck: Supple, No JVD, Negative Carotid Bruits Lungs: Air entry equal in bilateral lung bases. No crepitation/rhonchi Cardiovascular: Regular rate, Regular Rhythm, Normal S1, Normal S2, No murmurs Abdomen: Bowel Sounds Present, Soft, Non Tender, Non-Distended : No renal angle tenderness. No suprapubic tenderness. Extremities: No edema, Capillary Refill Less than 3 Seconds Skin: No rashes, No breakdown Musculoskeletal: No Tenderness to Palpation of Joints or Extremities Neurological: Cranial nerves II-XII grossly intact, Deep Tendon Reflexes 2+/4 and Symmetrical, Neuro grossly intact. NIH stroke 0 Psych/Mental Status: Normal Affect, Appropriate. ABG / Lab / Microbiology Data Result Diagrams: 03/13/21 05:39 03/13/21 05:39 Discharge Plan Admission Admit Date/Time: 03/13/21 02:01 Primary Reason for Your Visit: Complex migraine Attending Provider: Luis Antonio Ceballos Primary Care Provider: Bull Linton Instructions Additional Instructions / Restrictions: Patient Problems: Altered Health Status related to Hospitalization Patient Goals: *Optimal Level of Health *Keep Appointments *Medication Compliance *Remain Safe Discharge Orders/Prescriptions Prescriptions: Continued metoprolol tartrate 25 mg tablet 25 mg PO DAILY RF: 0 duloxetine 30 mg capsule,delayed release(DR/EC) 30 mg PO DAILY RF: 0 Discontinued sumatriptan succinate 50 MG tablet 50 mg PO PRN PRN (Reason: Migraines) RF: 0 Referrals / Follow Up: Terry Martinez MD [STAFF PHYSICIAN] - Within 2 Weeks Bull Linton [Primary Care Provider] - In 1 Week (Please call to schedule follow up appointment) Disposition Disposition (needs filled in before D/C Order can be placed): Home, self care Charges/Coding Visit Charges OBSV E&M: 04976 Observation care discharge
--- NOTE | 2021-03-13 12:49 | NURSING ---
information provided for local neurology - Dr Martinez and Dr Ramirez. Also provided stroke booklet for patient.
== END 2021-03-13 11:39 | disposition home or self-care (01) ==
LOC: ED 03-13 00:42 → PCU 03-13 02:09
PROVIDERS: Admitting Provider Hospitalist; Emergency Provider Student in an Organized Health Care Education/Training Program; PCP Student in an Organized Health Care Education/Training Program; Visit Provider Internal Medicine
DX: G43.109 Migraine with aura, not intractable, without status migrainosus (principal); E78.5 Hyperlipidemia, unspecified; F41.9 Anxiety disorder, unspecified; F32.9 Major depressive disorder, single episode, unspecified; Z79.899 Other long term (current) drug therapy; R29.700 NIHSS score 0
CPT/HCPCS: 36415; 70450; 70496; 70498; 70551; 71045; 80048; 80053; 80061; 82962; 83036; 84484; 85025; 85610; 85730; 92523; 93005; 94762; 97161; 97165; 99218; 99285; Q9967; A4216; G0378

== ENCOUNTER → 2021-04-06 08:49 | Outpatient (CLI) | payer MEDICAID, SELFPAY ==
[2021-04-05 12:20] VITALS: BMI 24.5
== END ==
PROVIDERS: PCP Student in an Organized Health Care Education/Training Program; Referring Provider Internal Medicine Cardiovascular Disease; Visit Provider Internal Medicine Cardiovascular Disease
DX: R00.2 Palpitations (principal)
CPT/HCPCS: 93225; 93226

== ENCOUNTER 2021-12-01 09:30 | Outpatient (CLI) | payer MEDICAID, SELFPAY ==
[2021-12-01 12:18] LABS: Hematocrit 37.4 % (37-47); Hemoglobin 12.5 g/dL (12.0-15.0); Mean Corp Hgb Conc 33.4 g/dL (32-36); Mean Corpuscular Hgb 28.9 pg (27.0-32.0); Mean Corpuscular Volume 86.4 fL (81-99); Mean Platelet Vol. 9.4 fl (6.2-12.0); Platelet Count 355 K/mm3 (150-450); RBC Distribution Width CV 12.8 % (11.6-14.6); RBC Distribution Width SD 40.2 fl (35.1-43.9); Red Blood Count 4.33 M/mm3 (4.2-5.4); White Blood Count 5.2 K/mm3 (4.4-11.0)
[2021-12-01 12:56] LABS: AST(SGOT) 12 U/L (15-37); Alanine Aminotransfer ALT/SGPT 16 U/L (13-56); Albumin, Serum 3.5 g/dL (3.2-5.0); Alkaline Phosphatase 62 U/L (45-117); Anion Gap 5 (5-15); BUN 12 mg/dL (7-18); BUN/Creat Ratio 19.4 RATIO (10-20); Calcium,Total 8.4 mg/dL (8.5-10.1); Chloride 109 mmol/L (98-107); Creatinine, Serum 0.62 mg/dL (0.55-1.02); EST Glomerular Filtration Rate 116 mL/min (>60); Est Glom Filt Rate - Afr Amer 140 mL/min (>60); Ferritin 24 ng/mL (8-252); Globulin 3.6 g/dL (2.2-4.2); Glucose 87 mg/dL (74-106); Iron 118 ug/dL (50-170); Potassium 3.7 mmol/L (3.5-5.1); Protein, Total 7.1 g/dL (6.4-8.2); Sodium Level 139 mmol/L (136-145)
== END 2021-12-01 23:59 | disposition home or self-care (01) ==
LOC: MTLAB 09:31
PROVIDERS: PCP Student in an Organized Health Care Education/Training Program; Referring Provider Nurse Practitioner Family; Visit Provider Nurse Practitioner Family
DX: R53.83 Other fatigue (principal); E53.8 Deficiency of other specified B group vitamins; E61.1 Iron deficiency
CPT/HCPCS: 36415; 80053; 82728; 83540; 85027

== ENCOUNTER → 2023-07-11 | Outpatient (CLI) | payer MEDICAID, SELFPAY ==
[2023-07-11 15:18] LABS: Hematocrit 38.5 % (37-47); Mean Corp Hgb Conc 33.8 g/dL (32-36); Mean Corpuscular Hgb 29.3 pg (27.0-32.0); Mean Corpuscular Volume 86.7 fL (81-99); Mean Platelet Vol. 9.7 fl (6.2-12.0); Platelet Count 339 K/mm3 (150-450); RBC Distribution Width CV 12.7 % (11.6-14.6); RBC Distribution Width SD 40.2 fl (35.1-43.9); Red Blood Count 4.44 M/mm3 (4.2-5.4); White Blood Count 7.9 K/mm3 (4.4-11.0)
[2023-07-11 16:16] LABS: ALB/GLOB Ratio 0.9 RATIO (0.9-2.4); AST(SGOT) 9 U/L (15-37); Alanine Aminotransfer ALT/SGPT 16 U/L (13-56); Albumin, Serum 3.6 g/dL (3.2-5.0); Alkaline Phosphatase 65 U/L (45-117); Anion Gap 5 (5-15); BUN 8 mg/dL (7-18); BUN/Creat Ratio 11.5 RATIO (10-20); Calcium,Total 8.6 mg/dL (8.5-10.1); Chloride 107 mmol/L (98-107); EST Glomerular Filtration Rate 100 mL/min (>60); Est Glom Filt Rate - Afr Amer 121 mL/min (>60); Globulin 3.9 g/dL (2.2-4.2); Glucose 93 mg/dL (74-106); Magnesium 2.4 mg/dL (1.6-2.6); Potassium 3.6 mmol/L (3.5-5.1); Protein, Total 7.5 g/dL (6.4-8.2); Sodium Level 138 mmol/L (136-145); Thyroid Stim Hormone (TSH) 1.23 uIU/mL (0.358-3.74)
[2023-07-14 14:10] LABS: Vitamin D 1,25-Dihydroxy 43.3 pg/mL (24.8-81.5)
== END | disposition home or self-care (01) ==
LOC: MTLAB 13:03
PROVIDERS: PCP Student in an Organized Health Care Education/Training Program; Referring Provider Psychiatry & Neurology Neurology; Visit Provider Psychiatry & Neurology Neurology
DX: G43.009 Migraine without aura, not intractable, without status migrainosus (principal); R53.83 Other fatigue; Z86.39 Personal history of other endocrine, nutritional and metabolic disease
CPT/HCPCS: 36415; 80053; 82652; 82746; 83735; 84443; 85027

== ENCOUNTER 2023-08-15 13:50 | Emergency (ER) | payer MEDICAID, SELFPAY ==
[2023-08-15 13:51] VITALS: BP 111/73; PULSE 74; RESP 16; TEMP 36.7; O2SAT 99; BMI 22.1
--- NOTE | 2023-08-15 14:07 | RAD_ITS ---
STUDY: X-RAY - BILATERAL HANDS REASON FOR EXAM: Female, 37 years old. Cat bite. Pain. TECHNIQUE - RIGHT HAND: 3 view(s) of the right hand were obtained. TECHNIQUE - LEFT HAND: 3 view(s) of the left hand were obtained. COMPARISON: None. FINDINGS - RIGHT HAND: Normal visualized carpal bones and carpal articulations. Normal carpometacarpal articulation of the thumb. Normal second through fifth carpometacarpal joints. Normal metacarpi. Normal metacarpophalangeal (MCP) joints. Normal visualized phalanges and interphalangeal joints. The soft tissue structures are unremarkable. FINDINGS - LEFT HAND: Normal visualized carpal bones and carpal articulations. Normal carpometacarpal articulation of the thumb. Normal second through fifth carpometacarpal joints. Normal metacarpi. Normal metacarpophalangeal (MCP) joints. Normal visualized phalanges and interphalangeal joints. The soft tissue structures are unremarkable. RAD/Hand Min 3 Views IMPRESSION: No abnormality of either hand. Electronically Signed: John Shipman MD at 15:10 EST ,
--- NOTE | 2023-08-15 14:27 | EX.ED.GENINJ ---
HPI History of Present Illness Chief Complaint: Bite Informant: patient and spouse/S.O. Narrative Narrative: Patient presenting here with spouse for evaluation of cat bite and scratches. They reported saw the stray cat over the past week, they saw the cat had kittens around, it was caught in a live trap 2 days ago. They reported the cat would be aggressive with kittens around. They are not sure if this is the mother as stating nipples were not descended. Initially stated cat was calm however yesterday it became aggressive. She got bit in her left hand and her right hand. Overnight there has been increasing redness and pain in her right thumb. She has no fevers or chills. Tetanus is unknown. No antibiotic allergies. Cat is still in their possession currently. Tetanus Immunization: Unknown Prior similar symptoms: No PFSH PFSH Medical History Anxiety Depression Fatigue Fear of needles Folate deficiency Hyperlipidemia Iron deficiency Migraine Non-smoker Nonrheumatic mitral (valve) insufficiency CHACHO (obstructive sleep apnea) Right ankle sprain Right foot sprain Sleep apnea Vitamin B12 deficiency Home Medications cyanocobalamin (vitamin B-12) 1,000 mcg/mL injection solution 1,000 mcg IM QMONTH 01/31/22 [History Last Taken Unknown] duloxetine 30 mg capsule,delayed release 30 mg PO BID #60 caps 06/27/22 [Rx Last Taken Unknown] fremanezumab-vfrm 225 mg/1.5 mL subcutaneous auto-injector (Ajovy) 225 mg (1.5 mL) subcut QMONTH #1.5 mL 07/11/23 [Rx Last Taken Unknown] metoprolol tartrate 25 mg tablet 25 mg PO BID #60 tabs 07/11/23 [Rx Last Taken Unknown] ubrogepant 100 mg tablet (Ubrelvy) 100 mg .Route .COMPLEX #14 tabs 07/11/23 [Rx Last Taken Unknown] amoxicillin 875 mg-potassium clavulanate 125 mg tablet 875 mg (0.875 x 875-125 mg) PO Q12H #20 TABLETS 08/15/23 [Rx Last Taken Unknown] hydrocodone-acetaminophen 5-325mg 5mg-325mg 1 tab PO Q6H PRN PRN Pain 3 days #12 TABLETS 08/15/23 [Rx Last Taken Unknown] ibuprofen 600 mg tablet 600 mg PO Q6H PRN PRN pain #20 TABLETS 08/15/23 [Rx Last Taken Unknown] Allergy/AdvReac Type Severity Reaction Status Date / Time orange Allergy Severe Vomiting Verified 08/15/23 13:53 Family History Mother Diabetes Father Myocardial infarction, Onset Age: 37 Grandfather Myocardial infarction, Onset Age: 47 Other Cancer Heart disease Surgical History H/O: hysterectomy History of appendectomy Social History household members: spouse and children housing: house number of children: 3 current occupational status: employed 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 Smoking Status: Never smoker second hand exposure: No alcohol intake: never substance use type: does not use what type of physical activity do you participate in: none cooper/christian: None seatbelt use: always ROS ROS ED Constitutional Constitutional ED: Denies chills, fever(s) or sweats Eyes Eyes: Denies change in vision ENT ENT ED: Denies dysphagia or sore throat Cardiovascular Cardiovascular: Denies chest pain, leg edema, palpitations or racing heartbeat Respiratory/Chest Respiratory/Chest: Denies cough, dyspnea or dyspnea on exertion Gastrointestinal Gastrointestinal: Denies abdominal pain, diarrhea, nausea or vomiting Genitourinary Genitourinary ED: Denies dysuria, hematuria or urinary frequency Musculoskeletal Musculoskeletal: Reports extremity pain; Denies back pain or neck pain Integumentary Reports wounds; Denies rash Neurologic Neurologic: Denies headache(s), paresthesias or weakness EXAM Physical Exam Const Vital Signs: 08/15/23 13:51 Temperature 98.0 F Temperature Source Temporal Pulse Rate 74 Respiratory Rate 16 Blood Pressure 111/73 Blood Pressure Mean 85 Pulse Ox 99 Oxygen Delivery Method Room Air Positive well nourished and well developed General Appearance ED: well developed and NAD HEENT Reports moist mucous membranes normocephalic and atraumatic Eyes PERRL, EOMs intact bilaterally and conjunctivae normal General Eye ED: Yes normal appearance of both eyes Neck no lymphadenopathy and supple General: Negative for tenderness Chest Wall Chest: Negative for tenderness Resp normal respiratory effort and normal air movement Effort and Inspection: symmetric chest movement; Negative for respiratory distress Cardio regular rate, regular rhythm and no murmurs Peripheral Pulses: pulses 2+ throughout GI normal to inspection, nondistended, normoactive bowel sounds and non-tender Palpation: Negative for guarding or rebound tenderness present Back/Spine no CVA tenderness and no thoracic nor lumbar tenderness Extremity Extremity Narrative: Right upper extremity: Puncture wounds to the thumb with mild swelling, there is streaking at the wrist and up to the medial aspect up to the elbow. There is no lymphadenopathy. No active drainage. Pain with movement of the thumb. Left upper extremity: Puncture is noted on the hypothenar aspect of the hematoma, mild tenderness in this area there is no streaking up the arm. No drainage. Abrasions noted to the dorsal aspect of the hand with no erythema. General Extremety ED: Negative for edema or tenderness General Extremity: Negative for edema Neuro oriented x3 and no sensory deficits noted Sensorium / Orientation: awake and alert Skin no rashes or lesions noted and no wounds MDM MDM MDM Narrative Medical decision making narrative: Interventions / MDM: Differential diagnosis: Cat bite cellulitis, puncture wounds Diagnosis considered but do not suspect: Tenosynovitis, 1 out of 4 Kanavel's sign with pain with movement of thumb. My EKG interpretation: N/A Imaging independently reviewed and interpreted by myself: Bilateral hand x-rays 6 views: No radiopaque foreign bodies, no soft tissue gas. External documents reviewed: N/A Test considered but not ordered:N/A ED course: Patient vital signs stable afebrile. Right hand with thumb injury streaking, this was outlined, labs were ordered including blood cultures secondary to the streaking. Afebrile not tachycardic respiratory rate is normal currently. Unasyn started, tetanus updated, x-rays of bilateral hands ordered for further evaluation. Toradol ordered for pain control. Labs are all stable no laboratory markers and white count. Blood cultures in the lab. Patient provided a thumb spica to help with mobilization and pain control. 1 out of 4 Kanavel's sign. Prescription antibiotic sent to her pharmacy along with anti-inflammatories and hydrocodone to use as needed. Outpatient follow-up with strict return precautions. Also nursing did call reach out to that office along with wildlife resources, cat is currently quarantined in their position. Patient into other given information if they would want cat quarantine and tested for rabies, they can take to the veterinary office. This was explained to them. With current quarantine and in the possession, no indication for initiation of rabies. All questions were answered. Re-evaluation: stable Disposition discussed with patient/family/significant other: Patient significant other Case discussed with consulting clinician: N/A This note was generated with [employer]ner[employer] software. It may contain incorrect words, spelling, and punctuation that were not noted in checking the note before signing. Lab Data Attestation: I reviewed the patient's lab results. Labs: Laboratory Results - last 24 hr 08/15/23 14:16 WBC 10.9 RBC 4.59 Hgb 12.9 Hct 39.7 MCV 86.5 MCH 28.1 MCHC 32.5 RDW Std Deviation 39.9 RDW Coeff of Joseph 12.6 Plt Count 305 MPV 9.8 Immature Gran % (Auto) 0.300 Neut % (Auto) 72.5 H Lymph % (Auto) 17.0 L Kane % (Auto) 8.3 Eos % (Auto) 1.5 Baso % (Auto) 0.4 Absolute Neuts (auto) 7.9 H Absolute Lymphs (auto) 1.85 Nucleated RBC % 0 ESR 4 Sodium 139 Potassium 4.2 Chloride 106 Carbon Dioxide 26.0 Anion Gap 7 BUN 14 Creatinine 0.68 Estim Creat Clear Calc 106.04 Est GFR (MDRD) Af Amer 125 Est GFR (MDRD) Non-Af 103 BUN/Creatinine Ratio 20.6 H Glucose 90 Calcium 8.6 C-React Prot High Sens 1.90 Radiography Diagnostic Testing: Clinical Impression(s) from Imaging Studies Hand X-Ray 08/15/23 14:07 IMPRESSION: No abnormality of either hand. Electronically Signed: John Shipman MD at 15:10 EST , Discharge Plan Triage Chief Complaint: Bite ED Provider: Yves Pereira Dx/Rx/DC Orders Clinical Impression: Cat bite of hand, Cat bite of finger, Cellulitis, Tetanus toxoid vaccination administered at current visit Instructions: Cellulitis Dc, ED Cat Bite Prescriptions: New ibuprofen 600 mg tablet 600 mg PO Q6H PRN PRN (Reason: pain) Qty: 20 0RF amoxicillin-pot clavulanate [amoxicillin-pot clavulanate] 875-125 mg tablet 875 mg PO Q12H Qty: 20 0RF hydrocodone-acetaminophen [hydrocodone-acetaminophen] 5-325 mg tablet 1 tab PO Q6H PRN PRN (Reason: Pain) 3 Days Qty: 12 0RF No Action cyanocobalamin (vitamin B-12) 1,000 mcg/mL solution 1,000 mcg IM QMONTH Rx Instructions: Being administered by PCP duloxetine 30 mg capsule,delayed release(DR/EC) 30 mg PO BID Qty: 60 6RF metoprolol tartrate 25 mg tablet 25 mg PO BID Qty: 60 6RF Ubrelvy 100 mg tablet 100 mg .ROUTE .COMPLEX Qty: 14 5RF Rx Instructions: 1 tablet orally every 2 hours up to 2 tablets/day as needed for headaches. Ajovy Autoinjector 225 mg/1.5 mL auto-injector 225 mg subcut QMONTH Qty: 1.5 5RF Primary Care Provider: Bull Linton Referrals: Bull Linton DO [Primary Care Provider] - Activity Restrictions/Additional Instructions: X-ray both hands negative. Labs are all stable. Blood cultures in the lab. Status post Unasyn, tetanus was updated in the ED. Take and finish antibiotic as prescribed. Maintain thumb splint to help with immobilization and pain control. Pain medicines as prescribed. Follow-up your doctor return if any worsening symptoms as discussed in the ED for reevaluation. Disposition Disposition: Home, Self Care
[2023-08-15] MEDS: Ketorolac 15 MG/ML Vial IV (14:39)
[2023-08-15 14:40] LABS: Erythrocyte Sedimentation Rate 4 mm/hr (0-30)
[2023-08-15 14:41] LABS: Absolute Lymphocyte Count 1.85 X10^3/uL (0.83-4.51); Absolute Neutrophil Count 7.9 X10^3/uL (2.0-7.7); Basophil# 0.04 X10^3/uL; Basophil% 0.4 % (0-1); Eosinophil# 0.16 X10^3/uL; Eosinophils% 1.5 % (0-5); Hematocrit 39.7 % (37-47); Hemoglobin 12.9 g/dL (12.0-15.0); Lymphocyte # 1.85 X10^3/ul (0.83-4.51); Mean Corp Hgb Conc 32.5 g/dL (32-36); Mean Corpuscular Hgb 28.1 pg (27.0-32.0); Mean Corpuscular Volume 86.5 fL (81-99); Mean Platelet Vol. 9.8 fl (6.2-12.0); Monocyte% 8.3 % (0-10); NRBC Flagged by Analyzer 0 % (0-5); Neutrophil # 7.88 X10^3/uL (2.7-7.7); Neutrophil % 72.5 % (47-70); Platelet Count 305 K/mm3 (150-450); RBC Distribution Width CV 12.6 % (11.6-14.6); RBC Distribution Width SD 39.9 fl (35.1-43.9); Red Blood Count 4.59 M/mm3 (4.2-5.4); White Blood Count 10.9 K/mm3 (4.4-11.0)
[2023-08-15] MEDS: Ampicillin/Sulbactam 3 GM in 0.9% Normal Saline (100mL MB+) 100 ML IV (14:41)
[2023-08-15] MEDS: Diphth,Pertuss(Acell),Tet Vac 0.5 ML Vial IM (14:42)
[2023-08-15 14:52] LABS: Anion Gap 7 (5-15); BUN 14 mg/dL (7-18); BUN/Creat Ratio 20.6 RATIO (10-20); Calcium,Total 8.6 mg/dL (8.5-10.1); Chloride 106 mmol/L (98-107); Creatinine, Serum 0.68 mg/dL (0.55-1.02); EST Glomerular Filtration Rate 103 mL/min (>60); Est Glom Filt Rate - Afr Amer 125 mL/min (>60); Estimated Creatinine Clearance 106.04 ml/min; Glucose 90 mg/dL (74-106); Potassium 4.2 mmol/L (3.5-5.1); Sodium Level 139 mmol/L (136-145)
[2023-08-15 15:41] VITALS: PULSE 68; RESP 16
== END 2023-08-15 15:44 | disposition home or self-care (01) ==
PROVIDERS: Emergency Provider Emergency Medicine; PCP Student in an Organized Health Care Education/Training Program; Visit Provider Emergency Medicine
DX: S61.451A Open bite of right hand, initial encounter (principal); L03.90 Cellulitis, unspecified; E78.5 Hyperlipidemia, unspecified; S61.452A Open bite of left hand, initial encounter; S61.051A Open bite of right thumb without damage to nail, initial encounter; Z23 Encounter for immunization; W55.01XA Bitten by cat, initial encounter
CPT/HCPCS: 73130; 80048; 85025; 85652; 86141; 87040; 90471; 90715; 96365; 96375; 99285; A4216; J0295

== ENCOUNTER → 2024-05-27 | Outpatient (CLI) | payer MEDICAID, SELFPAY ==
--- NOTE | 2024-05-27 09:20 | BI_ITS ---
MAMMOGRAPHY - BILATERAL DIAGNOSTIC REASON FOR EXAM: Female, 38 years old. Bilateral breast lumps. History of right nipple discharge. PERTINENT HISTORY: Non-contributory. TECHNIQUE: Digital bilateral breast aimee (3D mammographic acquisition) in the CC and MLO projections. 2-D mediolateral oblique (MLO) and craniocaudad (CC) views of both breasts were obtained. CAD: Full Field Digital Mammography with Computer Added Detection was performed. COMPARISON: None. Baseline examination. FINDINGS: Breast Composition: The breasts are extremely dense, which lowers the sensitivity of mammography. The palpable lump in the inferior deep lateral aspect of the left breast corresponds to a 2.1 cm x 1.9 cm well-defined nodule. The palpable lump in the right breast corresponds to a 1.2 cm x 1.4 cm well-defined nodule. There is also evidence of a 1.5 cm x 2.3 cm nodule in the deep upper and outer aspect of the right breast. Correlation with ultrasound of both breasts is recommended for further evaluation. No other significant abnormalities are identified. BI/DIAG MAMM W/CAD, BILAT IMPRESSION: Bilateral well-defined nodules as described. Correlation with ultrasound is recommended. ASSESSMENT CATEGORY: BIRADS Category 0: Incomplete. Need additional imaging evaluation. A letter regarding these results will be sent to the patient by the facility within 30 days. Approximately 10% of breast cancers are not detected by mammography. A normal mammogram should not delay biopsy of a clinically suspicious abnormality. Electronically Signed: Yash Morris MD at 13:43 EDT ,
--- NOTE | 2024-05-27 09:21 | US_ITS ---
STUDY: ULTRASOUND BREAST - LEFT REASON FOR EXAM: Female, 38 years old. Bilateral palpable lumps. TECHNIQUE: Axial and longitudinal images of the LEFT breast were performed with a high resolution ultrasound transducer. # OF IMAGES: 92 COMPARISON: Comparison is made with prior mammograms earlier today. FINDINGS: LEFT Breast: There is a 2.7 cm 2.9 cm x 1.5 cm hypoechoic slightly lobulated solid mass at the 4:00 position of the breast at 6 cm from the nipple. Increased vascularity is seen. Biopsy recommended. IMPRESSION: The palpable lump corresponds to a 2.7 cm x 2.9 cm x 1.5 cm hypoechoic lobulated solid mass at the 4:00 position of the breast at 6 size from the nipple. Biopsy recommended. ASSESSMENT CATEGORY: BIRADS Category 4: Suspicious - Biopsy Should Be Considered. A letter regarding these results will be sent to the patient by the facility within 30 days. Electronically Signed: Yash Morris MD at 10:45 EDT , STUDY: ULTRASOUND BREAST - RIGHT REASON FOR EXAM: Female, 38 years old. Right breast lumps. TECHNIQUE: Axial and longitudinal images of the RIGHT breast were performed with a high resolution ultrasound transducer. # OF IMAGES: 92 COMPARISON: Comparison is made with prior mammogram done earlier today. FINDINGS: RIGHT Breast: The palpable lump corresponds to a 1.8 cm x 1.4 cm x 1.4 cm hypoechoic slightly lobulated mass at the 9:00 position of the breast at 4 cm from nipple. Peripheral vascularity is seen. There is a total of 5 of these hypoechoic solid masses throughout the breast. There is a 1.9 cm x 2.4 signed by 1.9 cm nodule at the 9:00 position of the breast is 7 cm from nipple. A similar appearing nodule is seen at the 9:00 position breast is 6 out of from nipple measuring 1.2 cm x 1.1 cm x 0.6 cm. There is also evidence of 2 adjacent solid masses at the 10:00 position of the breast at 5 cm from nipple and 6 cm from the nipple. Biopsy recommended. US/Breast Limited Unilateral IMPRESSION: Multiple solid masses as described in the left breast. Biopsy recommended. ASSESSMENT CATEGORY: BIRADS Category 4: Suspicious - Biopsy Should Be Considered. A letter regarding these results will be sent to the patient by the facility within 30 days. Electronically Signed: Yash Morris MD at 10:47 EDT ,
== END | disposition home or self-care (01) ==
PROVIDERS: PCP Student in an Organized Health Care Education/Training Program; Referring Provider Obstetrics & Gynecology; Visit Provider Obstetrics & Gynecology
DX: N63.23 Unspecified lump in the left breast, lower outer quadrant (principal); N63.11 Unspecified lump in the right breast, upper outer quadrant
CPT/HCPCS: 77062; 76642; 77066; G0279

== ENCOUNTER 2024-10-11 18:12 | Emergency (ER) | payer MEDICAID, SELFPAY ==
[2024-10-11 18:12] VITALS: BP 113/78; PULSE 96; RESP 16; TEMP 35.8; O2SAT 100; BMI 22.6
--- NOTE | 2024-10-11 18:50 | EDS_ITS ---
HPI <YAMILET Damon - Last Filed: 10/11/24 18:56> History of Present Illness Chief Complaint: Dental Narrative Narrative: Patient a 39-year-old female with history anxiety, depression, migraine headaches who presents to the emergency department pain to the left upper molar. Patient states that she called her dentist and she does have an appointment this upcoming week on . Patient was given amoxicillin. She states that she is mostly here for pain control, she states that the pain is unbearable and she is here for evaluation. Denies any fever chills nausea vomiting. PFSH <YAMILET Damon - Last Filed: 10/11/24 18:56> [facility] Medical History Anxiety Depression Fatigue Fear of needles Folate deficiency Hyperlipidemia Iron deficiency Migraine Non-smoker Nonrheumatic mitral (valve) insufficiency CHACHO (obstructive sleep apnea) Right ankle sprain Right foot sprain Sleep apnea Vitamin B12 deficiency Home Medications ?Medication ?Instructions ?Recorded ?Last Taken ?Type cyanocobalamin (vitamin B-12) 1,000 mcg IM QMONTH 01/31/22 Unknown History 1,000 mcg/mL injection solution duloxetine 30 mg capsule,delayed 30 mg PO BID #60 caps 06/27/22 Unknown Rx release fremanezumab-vfrm 225 mg/1.5 mL 225 mg (1.5 mL) subcut QMONTH #1.5 07/11/23 Unknown Rx subcutaneous auto-injector (Ajovy) mL metoprolol tartrate 25 mg tablet 25 mg PO BID #60 tabs 07/11/23 Unknown Rx ubrogepant 100 mg tablet (Ubrelvy) 100 mg .Route .COMPLEX #14 tabs 07/11/23 Unknown Rx amoxicillin 875 mg-potassium 875 mg PO Q12H #20 TABLETS 08/15/23 Unknown Rx clavulanate 125 mg tablet hydrocodone-acetaminophen 5-325mg 1 tab PO Q6H PRN PRN Pain 3 days 08/15/23 Unknown Rx 5mg-325mg #12 TABLETS ibuprofen 600 mg tablet 600 mg PO Q6H PRN PRN pain #20 08/15/23 Unknown Rx TABLETS oxycodone-acetaminophen 5 mg-325 1 tab PO Q8H PRN pain 2 days #7 10/11/24 Unknown Rx mg tablet (Percocet) tabs Allergy/AdvReac Type Severity Reaction Status Date / Time orange Allergy Severe Vomiting Verified 10/11/24 18:12 Family History Mother Diabetes Father Myocardial infarction, Onset Age: 37 Grandfather Myocardial infarction, Onset Age: 47 Other Cancer Heart disease Surgical History H/O: hysterectomy History of appendectomy Social History household members: spouse and children housing: house number of children: 3 current occupational status: employed 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 Smoking Status: Never smoker second hand exposure: No alcohol intake: never substance use type: does not use what type of physical activity do you participate in: none cooper/tenriism: None seatbelt use: always ROS <YAMILET Damon - Last Filed: 10/11/24 18:56> ROS ED ROS Narrative Constitutional: Negative for fever, chills, weight loss, weakness Eyes: Negative for vision loss, vision change, double vision ENT: Negative for any sore throat, ear pain, congestion. Positive pain to the left upper jaw Cardiovascular: Negative for any chest pain, tightness, palpitations Respiratory: Negative for any cough, sputum production, hemoptysis, dyspnea, dyspnea on exertion, orthopnea Gastrointestinal: Negative for any abdominal pain, nausea, vomiting, diarrhea, constipation, blood in stool, blood in vomit : Negative for any urinary frequency, dysuria, retention, blood in urine Muscle skeletal: Negative for any neck pain, back pain Neurological: Negative for any headache, syncope, dizziness Skin: Negative for any rashes, itching, abrasions, lacerations Psychiatric: Negative for any depression, anxiety, stress, suicidal ideation, homicidal ideation Hematologic: Negative for any excessive bruising, easy bleeding EXAM <YAMILET Damon - Last Filed: 10/11/24 18:56> Physical Exam Narrative Exam Narrative: Vital signs reviewed. HEET: Head normocephalic atraumatic, TMs clear bilaterally. Posterior pharynx is clear, moist mucous membranes. Nares clear bilaterally. Negative for any trismus. No significant edema. Patient does have a appears to be chronic fracture to the left upper molar. There is no fluctuance, no drainable abscess. Neck: Supple with no lymphadenopathy or tenderness. No signs of meningismus. Cardiac: Regular rate and rhythm no murmurs gallops or rubs, equal peripheral pulses bilaterally. Respiratory: Lungs clear to auscultation bilaterally. No chest tenderness. Abdomen: Soft, nontender, nondistended. No abdominal bruit or pulsatile masses. No hepatosplenomegaly Const Vital Signs: 10/11/24 18:12 Temperature 96.4 F L Temperature Source Temporal Pulse Rate 96 Respiratory Rate 16 Blood Pressure 113/78 Blood Pressure Mean 89 Pulse Ox 100 Oxygen Delivery Method Room Air <Dr. Ben Fan MD - Last Filed: 10/11/24 18:58> Physical Exam Const Vital Signs: 10/11/24 18:12 Temperature 96.4 F L Temperature Source Temporal Pulse Rate 96 Respiratory Rate 16 Blood Pressure 113/78 Blood Pressure Mean 89 Pulse Ox 100 Oxygen Delivery Method Room Air MDM <YAMILET Damon - Last Filed: 10/11/24 18:56> [facility] Treatment and Re-Evaluation :: Differential diagnosis includes however is not limited to: Reversible pulpitis, tooth fracture, dental caries, gingivitis Patient appears generally well, vital signs are stable, patient is nontoxic- appearing. Presenting to the emergency department for pain control secondary to a fractured tooth. Patient is already on amoxicillin, she has been taking [id number] ibuprofen, Tylenol, salt water gargles and she is still having severe pain. I did look at the patient's medication history, patient has not had any narcotics in [place] since July 2023. At this time, patient received 8 Percocets for home. Will continue to follow-up outpatient with her dentist the next couple days. She was given strict return precautions, stable for discharge. <Dr. Ben Fan MD - Last Filed: 10/11/24 18:58> [facility] Narrative Medical decision making narrative: I have personally performed a face to face assessment of the patient and have reviewed the LAINEY Note. I performed a substantive portion of the visit including all aspects of the following. My alarcon findings include: History is [39-year-old female complaining of left upper molar dental pain. Currently on amoxicillin. Has appointment to see her dentist on . No trouble breathing or swallowing. Says she is using Tylenol Motrin and cannot control the pain.] Exam is [well-appearing 39-year-old female. Vital signs stable afebrile. No distress. H EENT exam multiple areas of poor dentition. Left upper molar is fractured and decaying tooth. Minimal gingival inflammation. No abscess. No trismus. Posterior pharynx normal. No trouble swallowing or breathing. There is multiple other dentition that are in poor condition. No swelling under tongue. No Neo's. Neck nontender no lymphadenopathy. No swelling. No trouble swallowing or breathing. Lungs clear. Heart regular rhythm no murmur. Abdomen soft. Otherwise exam unremarkable.] Medical Decision Making [dental pain and infection. Limited narcotic pain meds. Continue Tylenol Motrin. Continue antibiotic and follow-up with her dentist this week.] Other additions or changes: [None] History & Record Review Discussion w/independent historian: Patient Discharge Plan Triage Chief Complaint: Dental ED Midlevel Provider: Joe Zayas ED Provider: Ben Fan Dx/Rx/DC Orders Clinical Impression: Pain due to dental caries, Broken tooth-uncomplic Instructions: ED Dental Cavity Prescriptions: New oxycodone-acetaminophen [Percocet] 5-325 mg tablet 1 tab PO Q8H PRN (Reason: pain) 2 Days Qty: 7 0RF No Action cyanocobalamin (vitamin B-12) 1,000 mcg/mL solution 1,000 mcg IM QMONTH Rx Instructions: Being administered by PCP duloxetine 30 mg capsule,delayed release(DR/EC) 30 mg PO BID Qty: 60 6RF metoprolol tartrate 25 mg tablet 25 mg PO BID Qty: 60 6RF Ubrelvy 100 mg tablet 100 mg .ROUTE .COMPLEX Qty: 14 5RF Rx Instructions: 1 tablet orally every 2 hours up to 2 tablets/day as needed for headaches. Ajovy Autoinjector 225 mg/1.5 mL auto-injector 225 mg subcut QMONTH Qty: 1.5 5RF ibuprofen 600 mg tablet 600 mg PO Q6H PRN PRN (Reason: pain) Qty: 20 0RF amoxicillin-pot clavulanate [amoxicillin-pot clavulanate] 875-125 mg tablet 875 mg PO Q12H Qty: 20 0RF hydrocodone-acetaminophen [hydrocodone-acetaminophen] 5-325 mg tablet 1 tab PO Q6H PRN PRN (Reason: Pain) 3 Days Qty: 12 0RF Primary Care Provider: Bull Linton Referrals: Bull Linton, DO [Primary Care Provider] - Print Language: Albanian
[2024-10-11] MEDS: oxyCODONE 5 MG Tablet PO (19:03)
== END 2024-10-11 19:05 | disposition home or self-care (01) ==
PROVIDERS: Emergency Provider Emergency Medicine; PCP Student in an Organized Health Care Education/Training Program; Visit Provider Emergency Medicine
DX: S02.5XXA Fracture of tooth (traumatic), initial encounter for closed fracture (principal); X58.XXXA Exposure to other specified factors, initial encounter; K02.9 Dental caries, unspecified; F32.A Depression, unspecified; F41.9 Anxiety disorder, unspecified; E53.8 Deficiency of other specified B group vitamins; I34.0 Nonrheumatic mitral (valve) insufficiency; G43.909 Migraine, unspecified, not intractable, without status migrainosus; G47.33 Obstructive sleep apnea (adult) (pediatric); Z79.899 Other long term (current) drug therapy
CPT/HCPCS: 99282